=== PATIENT | female | born 1985 | race Caucasian/White ===

== ENCOUNTER 2021-06-26 19:11 | Emergency (ER) | payer BC, SELFPAY ==
[2021-06-26 19:16] VITALS: BP 125/84; PULSE 84; TEMP 97.9; BMI 20.5
== END 2021-06-26 20:54 | disposition home or self-care (01) ==
LOC: JERFT 19:11
DX: J11.1 Influenza due to unidentified influenza virus with other respiratory manifestations (principal); Z11.59 Encounter for screening for other viral diseases
CPT/HCPCS: 87804; 99283-25; C9803; U0003; U0005

== ENCOUNTER 2022-02-18 01:29 | Emergency (ER) | payer OTHER ==
[2022-02-18 03:47] LABS: HIV INTERPRETATION NEGATIVE (NEGATIVE)
== END 2022-02-18 04:20 | disposition home or self-care (01) ==
LOC: JER 01:29
DX: S61.031A Puncture wound without foreign body of right thumb without damage to nail, initial encounter (principal); W46.1XXA Contact with contaminated hypodermic needle, initial encounter
CPT/HCPCS: 36415; 84460; 86803; 87340; 87389; 99281-25